=== PATIENT | female | born 1955 | race Caucasian/White ===

== ENCOUNTER 2016-05-04 09:09 | Emergency (ER) ==
[2016-05-04] MEDS ORDERED: ASPIRIN PO STA (09:48)
--- NOTE | 2016-05-04 09:51 | PROVIDER DOCUMENTATION ---
HPI-Chest Pain - General Source: patient - History of Present Illness-CP Location: reports: other (left upper anterior) Chest Pain Radiation: reports: no radiation Quality of Pain: reports: aching Severity in ED: mild Onset/Duration: 3 days ago Timing: intermittent Modifying Factors: improves with: nothing Associated Symptoms: reports: dizziness, nausea, vomiting Nitro Today/Relief: no nitro taken today Aspirin Treatment Today: 325 mg x 1, provided by ED Similar Symptoms Previously?: Yes Recently Seen Here or By Another Healthcare Provider: No <Eddie Graham - Last Filed: 05/04/16 13:38> <Ronaldo Lema - Last Filed: 05/04/16 13:49> - General Chief Complaint: Chest Pain Stated Complaint: CP/DIZZINESS Time Seen by Provider: 05/04/16 09:33 Allergies/Adverse Reactions: Patient Allergies Allergy/AdvReac Type Severity Reaction Status Date / Time doxycycline Allergy Intermediate NAUSEA/VOMI Verified 05/04/16 10:08 TING Home Medications: Home Medication List Medication Instructions Recorded Confirmed Last Taken Type Pantoprazole [Protonix] 40 mg PO DAILY@0700 #30 tablet 06/06/14 05/04/16 07:00 Rx Clopidogrel [Plavix] 75 mg PO QAM #30 tablet 06/30/14 05/04/16 05/04/16 Rx LISINOpril [Prinivil] 10 mg PO DAILY #30 tablet 06/30/14 05/04/16 05/04/16 07: 00 Rx Metoprolol Succinate E.r. [Toprol 25 mg PO DAILY #30 tablet 06/30/14 05/04/16 06:00 Rx Xl] Cholecalciferol (Vit D3) [Vitamin 5,000 unit PO DAILY 06/12/15 05/04/16 History D3] Pramipexole [Mirapex] 0.5 mg PO QHS 06/12/15 05/04/16 05/03/16 History Umeclidinium Brm/Vilanterol Tr 1 each IH DAILY 06/12/15 05/04/16 05/04/16 06:00 History [Anoro Ellipta 62.5-25 Mcg INH] Aspirin 81 mg PO DAILY 05/04/16 05/04/16 05/04/16 06:00 History - History of Present Illness-CP Nature of Presenting Problem: Pt is a 60 yof with a defibrillator ([employer]) that presents to er with cc of intermittent Anterior left upper chest pain achy in nature x 3 days nonradiating with dizziness,lightheadedness (room spinning). Reports diaphoresis ,n,and vomiting with these episodes that last less than 5 minutes. Nothing makes it better or worse. (Eddie Graham) Review of Systems - Adult - REVIEW OF SYSTEMS - ADULT Constitutional: denies: chills, fever, fatique Eyes: reports: no symptoms reported Ears, Nose, Mouth & Throat: reports: no symptoms reported Cardiovascular: reports: chest pain. denies: irregular heart rate, orthopnea, syncope Respiratory: reports: no symptoms reported Gastrointestinal: reports: nausea, vomiting. denies: abdominal pain, diarrhea, difficulty swallowing, frequent heartburn, poor appetite Genitourinary: reports: no symptoms reported Musculoskeletal: reports: no symptoms reported Integumentary: reports: no symptoms reported Neurological: reports: dizziness/vertigo. denies: paresthesia, seizure, slurred speech Psychiatric: reports: no symptoms reported Endocrine: reports: no symptoms reported Hematologic/Lymphatic: reports: no symptoms reported Allergic/Immunologic: reports: no symptoms reported All Other Systems: Reviewed and Negative <Eddie Graham - Last Filed: 05/04/16 13:38> Past History - Adult - PAST MEDICAL HISTORY-ADULT Review of Records: reports: Nursing Assessment Review, Medications Reviewed Major Childhood Illnesses: reports: denies history Cardiovascular: reports: HTN Gastrointestinal: reports: GERD Neurological: reports: other (VERTIGO) - PRIOR SURGERIES/PROCEDURES Surgical/Procedure History: reports: reviewed, not pertinent, cholecystectomy - IMMUNIZATION STATUS Childhood Immunizations: See Nurse Assessment Flu Vaccine: See Nurse Assessment - FAMILY HISTORY Family History: CAD over 55 yo - SOCIAL HISTORY Smoking: other (former) Substance Use: none/never <Eddie Graham - Last Filed: 05/04/16 13:38> Physical Exam-General - PHYSICAL EXAM-ADULT Initial Vital Signs Reviewed: Yes - CONSTITUTIONAL General Appearance: appears well, alert, no apparent distress - EYES Eyes: PERRL/EOMI - HEAD, EARS, NOSE, MOUTH & THROAT HENMT: moist mucous membranes, pharynx normal - NECK Neck: non-tender, full range of motion, supple, normal inspection - RESPIRATORY Respiratory: chest non-tender, lungs clear, normal breath sounds, no pleuratic chest pain, no respiratory distress, no accessory muscle use - CARDIOVASCULAR Cardiovascular: regular rate, rhythm, no edema, no gallop, no JVD, no murmur - GASTROINTESTINAL (ABDOMEN) Abdominal Exam: normal bowel sounds, non tender, soft, no organomegaly, no pulsatile mass - MUSCULOSKELETAL Back Exam: normal inspection, no CVA tenderness, no vertebral tenderness Extremity: normal range of motion, non-tender, no pedal edema - SKIN Integumentary: normal color, normal turgor, warm/dry - PSYCHIATRIC Psych/Mental Status: normal mood/affect, normal thought content, normal thought process, oriented x 3 <Eddie Graham - Last Filed: 05/04/16 13:38> Progress - EKG 1 Time of EKG reading by physician:: 09:15 EKG Read and Signed by:: Ronaldo Lema EKG Interpretation (*Must complete 3 of following elements*): Abnormal ( possible inferior infarct age undetermined) Rate: 60 Rhythm: nsr Lydia: normal QRS: other (low voltage QRS) 2 Time of EKG reading by physician:: 13:05 EKG Read and Signed by:: Barbara Littlejohn EKG Interpretation (*Must complete 3 of following elements*): Normal Rate: 60 Rhythm: nsr Lydia: normal QRS: normal - XRAY 1 XRAY: Bilateral XRAY Study: Chest Impression: Normal, See EMR Report XRAY Interpretation: no acute pathology <Eddie Graham - Last Filed: 05/04/16 13:38> <Ronaldo Lema - Last Filed: 05/04/16 13:49> - PLAN OF CARE/RESULTS Progress/Plan/Lab Results: Vital Signs - 24 hr 05/04/16 09:16 Temperature 97.5 F L Pulse Rate 62 Respiratory 18 Rate Blood Pressure 128/69 O2 Sat by Pulse 100 Oximetry Orders Category Date Time Status Cardiac Monitoring DIRECTED Care 05/04/16 09:48 Active SLED Misc. NRSG Orders DIRECTED Care 05/04/16 09:48 Active Saline Loc NOW Care 05/04/16 09:48 Active CHEST-PORTABLE [RAD] Stat Exams 05/04/16 09:48 Draft CBC WITH ELECTRONIC DIFF [HEME] Stat Lab 05/04/16 09:43 Completed CK PROFILE [SP CHEM] Stat Lab 05/04/16 09:43 Received COMPREHENSIVE METABOLIC PANEL [CHEM] Stat Lab 05/04/16 09:43 Received MAGNESIUM [CHEM] Stat Lab 05/04/16 09:43 Received PRO B-NATRIURETIC PEPTIDE Stat Lab 05/04/16 09:43 Received PROTIME WITH INR [COAG] Stat Lab 05/04/16 09:43 Received PTT [COAG] Stat Lab 05/04/16 09:43 Received TROPONIN T Stat Lab 05/04/16 09:43 Received Aspirin Med 05/04/16 09:48 Discontinued 325 mg PO STAT STA EKG [EKG] Stat Ther 05/04/16 09:48 Ordered Laboratory Tests 05/04/16 05/04/16 05/04/16 09:43 09:43 09:43 WBC 7.97 RBC 5.05 Hgb 15.1 Hct 43.8 MCV 86.7 MCH 29.9 MCHC 34.5 RDW Std Deviation 12.1 Plt Count 206 MPV 10.2 Immature Gran % (Auto) 0.4 Neut % (Auto) 67.5 Lymph % (Auto) 24.1 [place] % (Auto) 6.1 Eos % (Auto) 1.4 Baso % (Auto) 0.5 Immature Gran # (Auto) 0.03 Neut # (Auto) 5.38 Lymph # (Auto) 1.92 [place] # (Auto) 0.49 Eos # (Auto) 0.11 Baso # (Auto) 0.04 PT INR PTT (Actin FS) Sodium 139 Potassium 4.5 Chloride 100 Carbon Dioxide 36 H Anion Gap 3 BUN 12 Creatinine 0.8 Estimated GFR/1.73 m2 > 60 BUN/Creatinine Ratio 15 Glucose 85 Calculated Osmolality 277 Calcium 9.0 Magnesium 2.1 Total Bilirubin 0.47 AST 15 ALT 10 Alkaline Phosphatase 91 Creatine Kinase 61 Troponin T Olx-X-Lctpziudyzf Pept 82 Total Protein 7.1 Albumin 4.0 Globulin 3.1 Albumin/Globulin Ratio 1.3 05/04/16 05/04/16 09:43 09:43 WBC RBC Hgb Hct MCV MCH MCHC RDW Std Deviation Plt Count MPV Immature Gran % (Auto) Neut % (Auto) Lymph % (Auto) [place] % (Auto) Eos % (Auto) Baso % (Auto) Immature Gran # (Auto) Neut # (Auto) Lymph # (Auto) [place] # (Auto) Eos # (Auto) Baso # (Auto) PT 9.9 INR 0.97 PTT (Actin FS) 22.5 Sodium Potassium Chloride Carbon Dioxide Anion Gap BUN Creatinine Estimated GFR/1.73 m2 BUN/Creatinine Ratio Glucose Calculated Osmolality Calcium Magnesium Total Bilirubin AST ALT Alkaline Phosphatase Creatine Kinase Troponin T < 0.010 Oii-I-Jriquzqemba Pept Total Protein Albumin Globulin Albumin/Globulin Ratio Laboratory Tests 05/04/16 05/04/16 05/04/16 09:43 09:43 09:43 WBC 7.97 RBC 5.05 Hgb 15.1 Hct 43.8 MCV 86.7 MCH 29.9 MCHC 34.5 RDW Std Deviation 12.1 Plt Count 206 MPV 10.2 Immature Gran % (Auto) 0.4 Neut % (Auto) 67.5 Lymph % (Auto) 24.1 [place] % (Auto) 6.1 Eos % (Auto) 1.4 Baso % (Auto) 0.5 Immature Gran # (Auto) 0.03 Neut # (Auto) 5.38 Lymph # (Auto) 1.92 [place] # (Auto) 0.49 Eos # (Auto) 0.11 Baso # (Auto) 0.04 PT INR PTT (Actin FS) Sodium 139 Potassium 4.5 Chloride 100 Carbon Dioxide 36 H Anion Gap 3 BUN 12 Creatinine 0.8 Estimated GFR/1.73 m2 > 60 BUN/Creatinine Ratio 15 Glucose 85 Calculated Osmolality 277 Calcium 9.0 Magnesium 2.1 Total Bilirubin 0.47 AST 15 ALT 10 Alkaline Phosphatase 91 Creatine Kinase 61 Troponin T Dty-V-Vsvmpabgyte Pept 82 Total Protein 7.1 Albumin 4.0 Globulin 3.1 Albumin/Globulin Ratio 1.3 05/04/16 05/04/16 05/04/16 09:43 09:43 12:57 WBC RBC Hgb Hct MCV MCH MCHC RDW Std Deviation Plt Count MPV Immature Gran % (Auto) Neut % (Auto) Lymph % (Auto) [place] % (Auto) Eos % (Auto) Baso % (Auto) Immature Gran # (Auto) Neut # (Auto) Lymph # (Auto) [place] # (Auto) Eos # (Auto) Baso # (Auto) PT 9.9 INR 0.97 PTT (Actin FS) 22.5 Sodium Potassium Chloride Carbon Dioxide Anion Gap BUN Creatinine Estimated GFR/1.73 m2 BUN/Creatinine Ratio Glucose Calculated Osmolality Calcium Magnesium Total Bilirubin AST ALT Alkaline Phosphatase Creatine Kinase 57 Troponin T < 0.010 Abf-E-Lsxmothnumb Pept Total Protein Albumin Globulin Albumin/Globulin Ratio 05/04/16 12:57 WBC RBC Hgb Hct MCV MCH MCHC RDW Std Deviation Plt Count MPV Immature Gran % (Auto) Neut % (Auto) Lymph % (Auto) [place] % (Auto) Eos % (Auto) Baso % (Auto) Immature Gran # (Auto) Neut # (Auto) Lymph # (Auto) [place] # (Auto) Eos # (Auto) Baso # (Auto) PT INR PTT (Actin FS) Sodium Potassium Chloride Carbon Dioxide Anion Gap BUN Creatinine Estimated GFR/1.73 m2 BUN/Creatinine Ratio Glucose Calculated Osmolality Calcium Magnesium Total Bilirubin AST ALT Alkaline Phosphatase Creatine Kinase Troponin T < 0.010 Fln-X-Prfejlivjzl Pept Total Protein Albumin Globulin Albumin/Globulin Ratio (Eddie Graham) Departure - Departure Time of Disposition Order: 13:38 Certified Medical Emergency: Emergent <Eddie Graham - Last Filed: 05/04/16 13:38> - Departure Time of Disposition Order: 13:48 Certified Medical Emergency: Emergent <Ronaldo Lema - Last Filed: 05/04/16 13:49> - Departure DIAGNOSIS: Atypical chest pain Disposition: HOME 01 Condition: Stable Additional Instructions: ED Follow Up Instructions: You have been treated by a care provider in the Emergency Department. These instructions are being provided to you so you can have an understanding of how to care for yourself upon discharge. Upon discharge from the Emergency Department, you are responsible for making arrangements for follow-up care by a physician of your choice. Take all prescribed medications as directed. Return to the Emergency Department immediately for any new or worsening symptoms. You may call the Physician Referral phone number at [phone] to obtain a list of Physicians who are taking new patients. Referrals: Gladys Menon CRNP [Primary Care Provider] - Instructions: Nonspecific Chest Pain Attestation - Scribe Verification/Attestation Scribe:: Eddie Graham Acting as Scribe for:: Ronaldo Lema Scribe documention review:: This chart was documented by a scribe and accurately reflects the service the provider performed and the decisions made by the provider. <Eddie Graham - Last Filed: 05/04/16 13:38> Physician Attestation - Physician Attestation I, the provider, attest to the following statement:: Ronaldo Lema Physician documentation Attestation:: This documentation recorded by the scribe accurately reflects the service I personally performed and the decisions made by me. <Ronaldo Lema - Last Filed: 05/04/16 13:49>
[2016-05-04 10:06] LABS: MANUAL DIFF NEEDED? NO
[2016-05-04 10:14] LABS: BASO% 0.5 % (0.0-0.8); EOS# 0.11 X1000 (0.0-0.7); EOS% 1.4 % (0.0-10.0); HEMATOCRIT 43.8 % (37.0-47.0); HEMOGLOBIN 15.1 g/dL (12.0-16.0); IMM GRAN# 0.03 X1000 (0.0-0.04); IMM GRAN% 0.4 % (0.0-0.5); LYMPH# 1.92 X1000 (1.2-3.4); LYMPH% 24.1 % (20.5-51.1); MCH 29.9 PG (27-31); MCHC 34.5 g/dL (33-37); MCV 86.7 FL (81-99); MONO# 0.49 X1000 (0.11-0.59); MONO% 6.1 % (1.7-9.3); MPV 10.2 FL (7.4-10.4); NEUT% 67.5 % (42.2-75.2); PLT 206 X1000 (130-400); RBC 5.05 XMIL (4.2-5.4)
--- NOTE | 2016-05-04 10:27 | Diag Imaging Result Document ---
PROCEDURE NAME: CHEST-PORTABLE - 05/04/2016 SINGLE FRONTAL RADIOGRAPH OF THE CHEST: COMPARISON: 06/12/2015. FINDINGS: The lungs are grossly clear. There is no definite pleural fluid collection. Cardiac silhouette and central vasculature are grossly unremarkable. The left-sided pacemaker/internal defibrillator is in stable position. IMPRESSION: No definite acute pathology.
[2016-05-04 10:42] LABS: INR 0.97; PROTIME 9.9 Seconds (9.2-11.7); PTT 22.5 Seconds (22.0-36.0)
[2016-05-04 10:56] LABS: AGAP 3; ALKALINE PHOSPHATASE 91 U/L (32-104); BUN 12 mg/dL (8-22); CHLORIDE 100 mmol/L (98-107); CK PROFILE 61 U/L (24-173); COSMO 277; GOT 15 U/L (10-30); GPT 10 U/L (10-36); MAGNESIUM 2.1 mg/dL (1.5-2.7); POTASSIUM 4.5 mmol/L (3.5-5.1); SODIUM 139 mmol/L (136-145); TCO2 36 mmol/L (25-35); TOTAL BILIRUBIN 0.47 mg/dL (0.20-1.00); TOTAL PROTEIN 7.1 g/dL (6.3-8.3)
--- NOTE | 2016-05-04 11:04 | EKG Report ---
Test Performed on : 05/04/2016 09:15:42 AM Test Reason : Chest Pain Blood Pressure : / mmHG Vent. Rate : 060 BPM Atrial Rate : 060 BPM P-R Int : 172 ms QRS Dur : 076 ms QT Int : 424 ms P-R-T Axes : 066 004 076 degrees QTc Int : 424 ms Normal sinus rhythm. Low voltage QRS Possible Inferior infarct (cited on or before 12-JUN-2015) Abnormal ECG When compared with ECG of 12-JUN-2015 22:20, No significant change was found Unconfirmed Result
[2016-05-04] MEDS ORDERED: ASPIRIN ONE (12:57)
[2016-05-04 14:05] VITALS: BP 124/68
--- NOTE | 2016-05-04 14:52 | EKG Report ---
Test Performed on : 05/04/2016 1:05:33 PM Test Reason : #2 Blood Pressure : / mmHG Vent. Rate : 060 BPM Atrial Rate : 060 BPM P-R Int : 188 ms QRS Dur : 074 ms QT Int : 446 ms P-R-T Axes : 071 014 063 degrees QTc Int : 446 ms Normal sinus rhythm. Normal ECG When compared with ECG of 04-MAY-2016 09:15, (Unconfirmed) No significant change was found Unconfirmed Result
== END 2016-05-04 14:05 | disposition home or self-care (01) ==
LOC: ED 09:09
DX: R07.89 Other chest pain (principal); R11.2 Nausea with vomiting, unspecified; R42 Dizziness and giddiness; I10 Essential (primary) hypertension; K21.9 Gastro-esophageal reflux disease without esophagitis; Z87.891 Personal history of nicotine dependence; R94.31 Abnormal electrocardiogram [ECG] [EKG]; Z79.899 Other long term (current) drug therapy; Z82.49 Family history of ischemic heart disease and other diseases of the circulatory system
CPT/HCPCS: 71010; 80053; 82550; 83735; 83880; 84484; 85025; 85610; 85730; 93005; 99284